=== PATIENT | female | born 1995 | race African-American/Black ===

== ENCOUNTER 2023-05-23 17:52 | Emergency (ER) | payer OTHER ==
[2023-05-23 18:06] VITALS: BP 134/83; PULSE 108; RESP 18; TEMP 98; BMI 22.3
[2023-05-23 19:52] LABS: EPI CELLS 7 /uL (0-25.1); HCG,QUALITATIVE URINE Negative; HYALINE CASTS 0 /uL (0-3.1); URINE APPEARANCE CLEAR; URINE BACTERIA >9,000 /uL (0-1359); URINE BILIRUBIN NEGATIVE (NEGATIVE); URINE COLOR YELLOW; URINE GLUCOSE (UA) NEGATIVE (NEGATIVE); URINE KETONE NEGATIVE (NEGATIVE); URINE LEUK ESTERASE NEGATIVE (NEGATIVE); URINE NITRITE POSITIVE (NEGATIVE); URINE PROTEIN NEGATIVE (NEGATIVE); URINE RBC 9 /uL (0-23.9); URINE UROBILINOGEN 0.2 mg/dL (0.2-1.0); URINE WBC 25 /uL (0-25.8)
[2023-05-23] MEDS ORDERED: CEFPODOXIME PROXETIL 100 MG TABLET PO ONE (20:39)
== END 2023-05-23 21:50 | disposition home or self-care (01) ==
LOC: JER 17:52
DX: N39.0 Urinary tract infection, site not specified (principal); R00.2 Palpitations; R39.15 Urgency of urination; R35.0 Frequency of micturition; R07.9 Chest pain, unspecified; R06.02 Shortness of breath; R00.0 Tachycardia, unspecified
CPT/HCPCS: 81003; 84703; 93005; 93010; 99284-25

== ENCOUNTER 2024-01-07 08:52 | Emergency (ER) | payer SELFPAY ==
[2024-01-07 09:58] VITALS: BMI 22.1
[2024-01-07] MEDS ORDERED: ACETAMINOPHEN 500 MG TABLET (FP) ONE (10:14)
[2024-01-07] MEDS: ACETAMINOPHEN 500 MG TABLET (FP) PO ONE (10:25)
[2024-01-07 10:36] LABS: EPI CELLS 9 /uL (0-25.1); HCG,QUALITATIVE URINE Negative; HYALINE CASTS 5 /uL (0-3.1); PH,URINE 5.5 (5.0-8.0); URINE APPEARANCE CLEAR; URINE BACTERIA >9,000 /uL (0-1359); URINE BILIRUBIN NEGATIVE (NEGATIVE); URINE COLOR YELLOW; URINE GLUCOSE (UA) NEGATIVE (NEGATIVE); URINE KETONE NEGATIVE (NEGATIVE); URINE LEUK ESTERASE 2+ (NEGATIVE); URINE NITRITE POSITIVE (NEGATIVE); URINE PROTEIN NEGATIVE (NEGATIVE); URINE RBC 13 /uL (0-23.9); URINE UROBILINOGEN 0.2 mg/dL (0.2-1.0); URINE WBC 341 /uL (0-25.8)
[2024-01-07] MEDS ORDERED: CEPHALEXIN 250 MG/5 ML ORAL SUSPENSION PO ONE (10:39)
[2024-01-07] MEDS ORDERED: CEPHALEXIN MONOHYDRATE 500 MG CAPSULE (UD) ONE (11:08)
[2024-01-07] MEDS: CEPHALEXIN MONOHYDRATE 500 MG CAPSULE (UD) PO ONE (11:12)
[2024-01-07 11:52] VITALS: BP 115/74; PULSE 98; RESP 20; TEMP 98.5
[2024-01-09] MEDS ORDERED: INSULIN (LEVEMIR) 100 UNITS/ML UNITS SQ ONE (07:14)
== END 2024-01-07 11:16 | disposition home or self-care (01) ==
LOC: JER 08:52
DX: N39.0 Urinary tract infection, site not specified (principal); B34.9 Viral infection, unspecified; R50.9 Fever, unspecified; J02.9 Acute pharyngitis, unspecified; R09.81 Nasal congestion; R35.0 Frequency of micturition; Z20.822 Contact with and (suspected) exposure to COVID-19
CPT/HCPCS: 0241U-QW; 81003; 84703; 87086; 87186; 99283-25

== ENCOUNTER 2024-01-20 08:29 | Emergency (ER) | payer OTHER ==
[2024-01-20 08:33] VITALS: BP 120/83; PULSE 94; RESP 20; TEMP 98.2; BMI 22.1
[2024-01-20 09:08] LABS: EPI CELLS 19 /uL (0-25.1); HYALINE CASTS 5 /uL (0-3.1); PH,URINE 5.5 (5.0-8.0); URINE APPEARANCE CLOUDY; URINE BACTERIA >9,000 /uL (0-1359); URINE BILIRUBIN NEGATIVE (NEGATIVE); URINE COLOR YELLOW; URINE GLUCOSE (UA) NEGATIVE (NEGATIVE); URINE KETONE NEGATIVE (NEGATIVE); URINE LEUK ESTERASE 2+ (NEGATIVE); URINE NITRITE POSITIVE (NEGATIVE); URINE PROTEIN NEGATIVE (NEGATIVE); URINE RBC 18 /uL (0-23.9); URINE UROBILINOGEN 0.2 mg/dL (0.2-1.0); URINE WBC 352 /uL (0-25.8)
[2024-01-20 09:15] LABS: HCG,QUALITATIVE URINE Negative
[2024-01-20] MEDS: NITROFURANTOIN MACROCRYSTAL 50 MG CAPSULE (FP) PO SCH (09:31)
== END 2024-01-20 09:57 | disposition home or self-care (01) ==
LOC: JERFT 08:29
DX: N39.0 Urinary tract infection, site not specified (principal); R30.0 Dysuria; N89.8 Other specified noninflammatory disorders of vagina
CPT/HCPCS: 36415; 81003; 84703; 87491; 87591; 99283-25